=== PATIENT | female | born 1960 | race Caucasian/White ===

== ENCOUNTER → 2020-12-25 16:42 | Outpatient (CLI) | payer BC, SELFPAY ==
--- NOTE | ~2020-12-25 | MM_ITS ---
EXAMINATION: MM screening allen BI w mark HISTORY: Screening mammogram TECHNIQUE: Craniocaudal and mediolateral oblique 3-D tomosynthesis images were obtained and synthetic 2-D images were generated. CAD analysis was submitted and interpreted. COMPARISON: No prior mammogram is available for comparison at this institution. BREAST PARENCHYMAL COMPOSITION: The breasts are heterogeneously dense, which may obscure small masses . FINDINGS: RIGHT BREAST: There is no evidence of suspicious mass, calcification, or architectural distortion to suggest malignancy. LEFT BREAST: There is focal asymmetry in the subareolar aspect of the breast. In addition, there is a n asymmetry in the posterior third of the breast in line with the nipple axis on the craniocaudal vie w. IMPRESSION: 1. Left breast findings as described above which may represent the patient's baseline however no comp arison is currently available. 2. Comparison with prior mammograms is necessary. BI-RADS Category 0: Incomplete: Needs comparison with prior mammograms. Reviewed, dictated and finalized at location A. IMPRESSION: 1. Left breast findings as described above which may represent the patient's ba seline however no comparison is currently available. 2. Comparison with prior mammograms is necessary. BI-RADS Category 0: Incomplete: Needs comparison with prior mammograms.
== END ==
PROVIDERS: PCP Internal Medicine; Visit Provider Obstetrics & Gynecology
DX: Z12.31 Encounter for screening mammogram for malignant neoplasm of breast (principal); R92.8 Other abnormal and inconclusive findings on diagnostic imaging of breast
CPT/HCPCS: 77063; 77067

== ENCOUNTER → 2021-11-25 15:08 | Outpatient (CLI) | payer BC, SELFPAY ==
--- NOTE | ~2021-11-25 | US_ITS ---
EXAMINATION: US thyroid DATE: 11/25/2021 15:38 INDICATION: Thyroid nodule. TECHNIQUE: Multiple ultrasound images of the thyroid were obtained. COMPARISON: None. FINDINGS: The right thyroid lobe measures 4.2 x 1.4 x 1.6 cm. The left thyroid lobe measures 4.0 x 2.2 x 1.8 c m. In the left thyroid lobe, there is a 2.4 cm predominantly solid, hypoechoic, wider than tall nodu le with lobulated margin without echogenic foci (TI-RADS TR4). In the right thyroid lobe, there is a 10 mm solid, isoechoic, wider than tall nodule with smooth margin without echogenic foci (TR3). In th e right thyroid lobe, there is a 9 mm solid, isoechoic, wider than tall nodule with smooth margin wit hout echogenic foci (TR3). IMPRESSION: 1. Multinodular goiter. Ultrasound-guided fine-needle aspiration of the 2.4 cm left thyroid nodule is recommended. Reviewed, dictated and finalized at location E.
== END ==
PROVIDERS: PCP Obstetrics & Gynecology; Visit Provider Obstetrics & Gynecology
DX: E04.2 Nontoxic multinodular goiter (principal)
CPT/HCPCS: 76536

== ENCOUNTER 2021-12-18 12:50 | Outpatient (CLI) | payer BC, SELFPAY ==
--- NOTE | ~2021-12-18 | US_ITS ---
EXAMINATION: US FNA w image guidance DATE: 12/18/2021 13:44 INDICATION: Goiter with 2.4 cm left thyroid nodule. TECHNIQUE: A time-out was performed to verify the patient's name, date of , and procedure to be performed . The procedure and its benefits and risks were discussed with the patient. Risks specifically discus sed included bleeding and infection. The patient understood the risks and agreed to proceed. The neck was prepped and draped in the usual sterile manner. 3 mL 1% lidocaine was used for local anesthesia . 6 passes were made with a 25G needle into the lesion. Appropriate needle location was documented with continuous sonographic guidance. A sterile bandage was applied. There were no immediate compli cations. FINDINGS: Grayscale ultrasound images demonstrate biopsy needles advanced into the heterogeneous predominantly solid isoechoic left thyroid nodule of concern. IMPRESSION: 1. Successful ultrasound-guided fine needle aspiration of the largest TI RADS 3 left thyroid nodule. Reviewed, dictated and finalized at location A.
== END 2021-12-18 12:51 | disposition home or self-care (01) ==
PROVIDERS: Visit Provider Otolaryngology
DX: E04.2 Nontoxic multinodular goiter (principal)
CPT/HCPCS: 10005; 88173; 88305

== ENCOUNTER → 2022-02-10 13:12 | Outpatient (CLI) | payer BC, SELFPAY ==
--- NOTE | ~2022-02-10 | DEXA_ITS ---
Bone Density Report Name: MARIETTA GILL Age: 61 Sex: Female Ethnicity: White Date of : 1960 Indication: postmenopausal; screening for osteoporosis; height loss; hysterectomy; Referring Provider: RYAN BEAUCHAMP Study: Bone densitometry was performed. Exam Date: February 10, 2022 Accession number: [id number] Bone Density: Region BMD T-score Z-score Classification AP Spine (L1-L4) 0.982 -0.6 0.9 Normal Femoral Neck (Left) 0.671 -1.6 -0.3 Osteopenia Total Hip (Left) 0.848 -0.8 0.2 Normal Femoral Neck (Right) 0.693 -1.4 -0.1 Osteopenia Total Hip (Right) 0.871 -0.6 0.4 Normal Total Hip Mean 0.860 -0.7 0.3 Normal World Health Organization criteria for BMD impression classify patients as: Normal (T-score at or above -1.0), Osteopenia (T-score between -1.0 and -2.5), or Osteoporosis (T-score at or below -2.5). 10-year Fracture Risk: FRAX not reported because: Treated for osteoporosis Clinical Information Provided by Patient: Is being treated for osteoporosis Has used the following medications: Evista (i.e. raloxifene), Vitamin D, Calcium, MTV Has the following medical conditions: Hysterectomy Patient maximum height was 69 Menopause Age: 35 Drinks caffeinated beverages Onset of menses at age 14 Number of children 2 Impression: The patient has low bone mass, based on the Left Femoral Neck T-score. Discussion: It is important to ask patients whether they are taking their medications and to encourage continued and appropriate compliance with their osteoporosis therapies to reduce fracture risk. It is also important to review their risk factors and encourage appropriate calcium and vitamin D intakes, exercise, fall prevention and other lifestyle measures. Follow-Up: Consider a repeat BMD and Vertebral Fracture Assessment (VFA) exam in 2 years or sooner if medically necessary, to reassess this patient's status. Reported by: MIKI on 02/10/2022 2:25:00 PM. Reviewed, dictated and finalized at location AGiovanna GRUBBS
--- NOTE | ~2022-02-10 | MM_ITS ---
EXAMINATION: MM screening allen BI w mark HISTORY: Screening TECHNIQUE: Craniocaudal and mediolateral oblique 3-D tomosynthesis images were obtained and synthetic 2-D images were generated. CAD analysis was submitted and interpreted. COMPARISON: Comparison to multiple prior studies sequentially, with oldest reviewed study dated 06/2018. BREAST PARENCHYMAL COMPOSITION: Breast composed of scattered areas of fibroglandular density FINDINGS: There is focal asymmetry in the subareolar location of the left breast, best seen on MLO vi ew. The right breast is stable without evidence for malignancy. IMPRESSION: 1. New left breast asymmetry, subareolar location. 2. Additional mammographic views and possible breast ultrasound are recommended. BI-RADS Category 0: Incomplete: Needs additional imaging evaluation. Reviewed, dictated and finalized at location A. IMPRESSION: 1. New left breast asymmetry, subareolar location. 2. Additional mammographic views and possible breast ultrasound are recommended . BI-RADS Category 0: Incomplete: Needs additional imaging evaluation.
== END ==
PROVIDERS: PCP Obstetrics & Gynecology; Visit Provider Obstetrics & Gynecology
DX: Z12.31 Encounter for screening mammogram for malignant neoplasm of breast (principal); Z78.0 Asymptomatic menopausal state; M85.89 Other specified disorders of bone density and structure, multiple sites; R92.8 Other abnormal and inconclusive findings on diagnostic imaging of breast
CPT/HCPCS: 77063; 77067; 77080

== ENCOUNTER → 2022-02-27 07:38 | Outpatient (CLI) | payer BC, SELFPAY ==
--- NOTE | ~2022-02-27 | MMUS_ITS ---
EXAMINATION: MM diagnostic allen LT w mark, US breast LT complete HISTORY: New left subareolar mammographic asymmetry reported on 02/10/2022 screening mammogram examina tion TECHNIQUE: Additional 3-D tomosynthesis images of the left breast were performed and synthetic 2-D im ages were generated. CAD analysis was submitted and interpreted. High resolution complete left breast ultrasound including all 4 quadrants and subareolar area was performed. COMPARISON 02/10/2022: 12/25/2020, 12/10/2019, 08/20/2018 bilateral screening mammogram examinations] FINDINGS: MAMMOGRAPHIC FINDINGS: Stable approximately 1 cm rounded opacity overlies the subareolar area on MLO view that appears stabl e since prior examinations including 08/20/2018. This appears to be composite shadowing of overlapping fibroglandular stroma. ULTRASOUND: No suspicious mass or shadowing of the left breast is detected. There are several mildly hyperechoic circumscribed parallel lesions which are likely lipomas includin g the followin:00 5 cm from nipple: 7.4 x 10.4 x 10 mm lipoma 7:00 4 cm from nipple: Parallel circumscribed approximately 8 x 24 x 22 mm lipoma 9:00 4 cm from nipple: 6.4 x 9.6 x 11 mm lipoma IMPRESSION: 1. No mammographic evidence of malignancy 2. Routine annual mammographic screening is recommended BI-RADS Category 2: Benign finding(s). Reviewed, dictated and finalized at location A. IMPRESSION: 1. No mammographic evidence of malignancy 2. Routine annual mammographic screening is recommended BI-RADS Category 2: Benign finding(s).
== END ==
PROVIDERS: Visit Provider Obstetrics & Gynecology
DX: R92.8 Other abnormal and inconclusive findings on diagnostic imaging of breast (principal); D17.1 Benign lipomatous neoplasm of skin and subcutaneous tissue of trunk
CPT/HCPCS: 76641; 77061; 77065; G0279

== ENCOUNTER → 2023-02-12 14:42 | Outpatient (CLI) | payer BC, SELFPAY ==
--- NOTE | ~2023-02-12 | MM_ITS ---
EXAMINATION: MM screening allen BI w mark HISTORY: Screening mammogram TECHNIQUE: Craniocaudal and mediolateral oblique 3-D tomosynthesis images were obtained and synthetic 2-D images were generated. CAD analysis was submitted and interpreted. COMPARISON: 02/27/2022 diagnostic left mammogram and complete left breast ultrasound examination 02/10/2022, 12/25/2020 bilateral screening mammogram examinations BREAST PARENCHYMAL COMPOSITION: There are scattered areas of fibroglandular density. FINDINGS: There is no evidence of suspicious mass, calcification, or architectural distortion to sugg est malignancy in either breast. There has been no suspicious interval change. IMPRESSION: 1. No mammographic evidence of malignancy. 2. Recommend routine screening mammography in one year. BI-RADS Category 1: Negative Reviewed, dictated and finalized at location A.
== END ==
PROVIDERS: PCP Family Medicine; Visit Provider Obstetrics & Gynecology
DX: Z12.31 Encounter for screening mammogram for malignant neoplasm of breast (principal)
CPT/HCPCS: 77063; 77067

== ENCOUNTER 2024-04-13 14:15 | Outpatient (CLI) | payer BC, SELFPAY ==
--- NOTE | ~2024-04-13 | MM_ITS ---
EXAMINATION: MM screening allen BI w mark HISTORY: Screening TECHNIQUE: Craniocaudal and mediolateral oblique 3-D tomosynthesis images were obtained and synthetic 2-D images were generated. CAD analysis was submitted and interpreted. COMPARISON: Comparison to multiple prior studies sequentially, with oldest reviewed study dated 06/2018. BREAST PARENCHYMAL COMPOSITION: Not dense: There are scattered areas of fibroglandular density. FINDINGS: There is no evidence of suspicious mass, calcification, or architectural distortion to sugg est malignancy in either breast. There has been no suspicious interval change. IMPRESSION: 1. No mammographic evidence of malignancy. 2. Recommend routine screening mammography in one year. BI-RADS Category 1: Negative Reviewed, dictated and finalized at location B.
== END 2024-04-13 14:16 | disposition home or self-care (01) ==
LOC: MICIMG 14:16
PROVIDERS: PCP Family Medicine; Visit Provider Obstetrics & Gynecology
DX: Z12.31 Encounter for screening mammogram for malignant neoplasm of breast (principal)
CPT/HCPCS: 77063; 77067

== ENCOUNTER 2024-08-01 15:15 | Outpatient (CLI) | payer BC, SELFPAY ==
--- NOTE | ~2024-08-01 | US_ITS ---
EXAMINATION: US thyroid DATE: 08/01/2024 15:31 INDICATION: Follow-up thyroid nodule TECHNIQUE: Multiple ultrasound images of the thyroid were obtained. COMPARISON: 11/25/2021. Reference was also made to a FNA of a nodule within the left lobe of the thyroi d gland, performed 12/18/2021, yielding benign results. FINDINGS: The right thyroid lobe measures 4.6 x 2.1 x 1.3 cm. Within the lower pole of the right lobe of the thyroid gland is a 6.9 x 7.5 x 7.6 mm nodule: Composition -solid or almost completely solid (2) Echogenicity -isoechoic (1) Shape - wider than tall Margin - smooth Echogenic foci - none. = TR3 Mildly suspicious Greater than or equal to 1.5 cm: Follow-up Greater than or equal to 2.5 cm: FNA The left thyroid lobe measures 4.6 x 2.3 x 1.9 cm. Within the lower pole of the left lobe of the thyroid gland is a 22 x 22 x 12 mm nodule: Composition -spongiform Echogenicity -isoechoic and hyperechoic (1) Shape - wider than tall Margin - smooth Echogenic foci - none. = TR1 benign No FNA No follow-up This nodule corresponds to the abnormality biopsied in 2021, yielding benign results. The isthmus measures 3.3 mm in anterior to posterior dimension. There is normal echotexture and echogenicity throughout the remainder of the thyroid gland. No additi onal discrete nodules identified. Normal vascular flow is present. IMPRESSION: TR3 nodule in the right lobe of the thyroid gland measuring 7.6 mm in greatest dimension. This nodule measures below the threshold for both FNA and follow-up. TR1 nodule within the left lobe of thyroid gland, previously biopsied and largely unchanged from prio r for which no follow-up is recommended. Reviewed, dictated and finalized at location A. 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 This nodule measures below the threshold for both FNA and follow-up. TR1 nodule within the left lobe of thyroid gland, previously biopsied and large ly unchanged from prior for which no follow-up is recommended.
== END 2024-08-01 15:16 | disposition home or self-care (01) ==
LOC: MICIMG 15:15
PROVIDERS: PCP Family Medicine; Visit Provider Otolaryngology Otolaryngology/Facial Plastic Surgery
DX: E04.2 Nontoxic multinodular goiter (principal)
CPT/HCPCS: 76536

== ENCOUNTER 2024-12-21 14:37 | Outpatient (CLI) | payer BC, SELFPAY ==
--- NOTE | ~2024-12-21 | DEXA_ITS ---
Bone Density Report Name: MARIETTA GILL Age: 63 Sex: Female Ethnicity: White Date of : 1960 Indication: postmenopausal; screening for osteoporosis; height loss; hysterectomy; Referring Provider: DENISE CERVANTES Study: Bone densitometry was performed. Exam Date: December 21, 2024 Accession number: [id number] Bone Density: Region BMD T-score Z-score Classification AP Spine(L1-L4) 0.935 -1.0 0.7 Normal Femoral Neck (Left) 0.693 -1.4 0.1 Osteopenia Total Hip (Left) 0.877 -0.5 0.6 Normal Femoral Neck (Right) 0.695 -1.4 0.1 Osteopenia Total Hip (Right) 0.936 0.0 1.1 Normal Total Hip Mean 0.906 -0.3 0.9 Normal World Health Organization criteria for BMD impression classify patients as: Normal (T-score at or above -1.0), Osteopenia (T-score between -1.0 and -2.5), or Osteoporosis (T-score at or below -2.5). 10-year Fracture Risk(1): Major Osteoporotic Fracture 8.4% Hip Fracture 0.8% Reported Risk Factors: [place] (), Neck BMD=0.693, BMI=27.7 (1) FRAX(R) Version 3.08. Fracture probability calculated for an untreated patient. Fracture probability may be lower if the patient has received treatment. Clinical Information Provided by Patient: Has used the following medications: Evista (i.e. raloxifene), Vitamin D, Calcium Has the following medical conditions: Hysterectomy Patient maximum height was 69.5 Menopause Age: 35 Drinks caffeinated beverages Onset of menses at age 13 Number of children 2 Impression: The patient has low bone mass, based on the Left Femoral Neck T-score. The patient has an estimated ten-year risk of hip fracture of 0.8% and an estimated ten-year risk of major fracture of 8.4%, based on the WHO FRAX algorithm. Discussion: BONE DENSITY IS LOW AT ONE OR MORE SKELETAL SITES. This patient's lowest T-score is low at one or more skeletal sites. It meets the World Health Organization's (WHO) criteria for ?low bone mass? (T-score between -1.0 and -2.5). The patient's 10-year risk of fracture as calculated by FRAX is less than the threshold where pharmacological therapy is recommended by the National Osteoporosis Foundation (NOF). However, all treatment decisions require clinical judgment and consideration of individual patient factors, including patient preferences, comorbidities, previous drug use, risk factors not captured in the FRAX model (e.g., frailty, falls, vitamin D deficiency, increased bone turnover, interval significant decline in bone density) and possible under or overestimation of fracture risk by FRAX. The patient should follow a healthful lifestyle (good nutrition with adequate calcium and vitamin D, and appropriate weight-bearing exercise). Follow-Up: Consider repeating this study in 2 to 3 years to reassess this patient's status, or sooner if there is some new clinical indication. Reported by: DAWN on 12/21/2024 3:15:00 PM. Reviewed, dictated and finalized at location A.
--- OUTSIDE RECORDS SUMMARY | 2024-12-21 14:40 | XMS_ITS | Encounter Summary ---
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 Name Role Phone Justice Chairez MD Primary Care Provider [phone] Laly Houston MD Primary Care Provide r Encounter Details Date Type Department Care Team (Late st Contact Info) Description 12/13/2019 Telephone [facility] [address] [place] [address] Doris Cole, RT Social History Tobacco Use Types Packs/Day Years Used Date Smoking Tobacco: Never Smokeless Tobacco: Never Alcohol Use Standard Drinks/Week Comments Yes 0 (1 standard drink = 0.6 oz pur e alcohol) PHQ-2 Answer Date Recorded PHQ-2 Score 0 02/10/2019 Comments No Sex and Gender Information Value Date Recorded Sex Assigned at Not on file 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
--- OUTSIDE RECORDS SUMMARY | 2024-12-21 14:40 | XMS_ITS | Referral Summary ---
Author Organization [facility] Address [address] [place] [address] Care Team Providers Care Safety Lead Name Role Phone Unavailable Primary Care Provider Unavailabl e Allergies No known active allergies Medications spironolactone (ALDACTONE) 50 mg tablet take 1 tablet (50MG) by oral route every other day 0 0 Active raloxifene (EVISTA) 60 mg tablet take 1 tablet (60MG) by oral route every day 0 0 Active triamcinolone (KENALOG) 0.1 % cream PLEASE SEE ATTACHED FOR DETAILED DIRECTIONS 1 Active Active Problems Problem Noted Date Diagnosed Date Encounter for wellness examination 04/03/2022 Assessment & Plan (04/03/2022 9:49 PM CDT): Ordered CBC, cmp, lipid, hgb a1c, HIV, hep c Colonoscopy:up to date Pap smear:follows with ob Mammo:follows with ob F/u in 1 year for annual Personal history of colonic polyps 05/03/2021 Overview (05/03/2021): Added automatically from request for surgery [id number] Encounter for screening colonoscopy 05/03/2021 Overview (05/03/2021): Added automatically from request for surgery [id number] Vitamin D deficiency 04/17/2021 Vitamin D deficiency 04/17/2021 Mixed hyperlipidemia 12/10/2018 Assessment & Plan (04/03/2022 9:46 PM CDT): Stable / clinically quiescent. Will continue to monitor. Osteopenia of multiple sites 12/10/2018 Assessment & Plan (04/03/2022 9:46 PM CDT): Stable Continue with calcium and vitamin d Resolved Problems Problem Noted Date Diagnosed Date Resolved Date Encounter for wellness examination in adult 12/10/2018 12/10/2018 Immunizations Immunization Administration Dates Next Due Flucelvax Influenza Quad 03/26/2019,03/20/2018,1 Influenza, Quadrivalent, Karyn l Culture-based MDCK, Preservative Free, Antibiotic Free, Intramuscular 03/26/2019,03/20/2018,03/25/2017 Influenza, Quadrivalent, Spl it, Preservative Free, Intradermal 03/26/2016 Influenza, Quadrivalent, Spl it, Preservative Free, Intramuscular 04/02/2021,03/27/2020,03/26/2016,03/22 Influenza, Split 03/22/2010 Influenza, Trivalent, IM (MDV) 4,03/22/2013,04/10/2012,04/22 Influenza, Unspecified 03/27/2022,2018,03/25/2017,03/06 Td, adsorbed 04/02/2021 Tdap 06/05/2010 ZOSTER LIVE 04/10/2012 ZOSTER Recombinant 07/09/2019,03/26/2019 Social History Tobacco Use Types Packs/Day Years Used Date Smoking Tobacco: Never Smokeless Tobacco: Never Tobacco Cessation:Counseling Given: Not Answered Alcohol Use Standard Drinks/Week Comments Yes 0 (1 standard drink = 0.6 oz pur e alcohol) AUDIT-C Answer Date Recorded Q1: How often do you have a drink containing alc ohol? Monthly or less 09/02/2021 Average Number of Drinks Not on file 022 Q3: How often do you have si x or more drinks on one occasion? 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 Gender Identity Not on file Sexual Orientation Not on file Last Filed Vital Signs Vital Sign Reading Time Taken Comments Blood Pressure 126/80 04/03/2022 3:53 PM CDT Pulse 75 04/03/2022 3:53 PM CDT Temperature 36.8 C (98.2 F) 09/02/2021 9:08 AM CDT Respiratory Rate 16 04/03/2022 3:53 PM CDT Oxygen Saturation 97% 04/03/2022 3:53 PM CDT Inhaled Oxygen Concentration - - Weight 82.6 kg (182 lb) 04/03/2022 3:53 PM CDT Height 175.3 cm (5' 9) 04/03/2022 3:53 PM CDT Body Mass Index 26.88 04/03/2022 3:53 PM CDT Plan of Treatment Not on file Procedures Procedure Name Priority Date/Time Associated Diagnosis Comments HEPATITIS C ANTIBODY Routine 04/10/2022 6:57 AM CDT Mixed hyperlipidemia Healthcare maintenance Need for hepatitis C screening test DEXA AXIAL SKELETON BONE DENSITY 1 OR MORE SITES Schedule Routine, Read Routine (OP Routine) 02/10/2022 SCREENING MAMMOGRAM BILATERAL W ISAC Schedule Routine, Read Routine (OP Routine) 02/10/2022 COLONOSCOPY 09/02/2021 7:28 AM CDT from Last 3 Months or Most Recently Relevant to Health Maintenance Results * Hepatitis C antibody (04/10/2022 6:57 AM CDT) Hep C Ab NON-REACTI VE NON-REACT IRMA [facility] SIGNAL TO CUT-OFF 0.02 <1.00 [facility] Comment: HCV antibody was non-reactive. There is no laboratory evidence of HCV infection. In most cases, no further action is required. However, if recent HCV exposure is suspected, a test for HCV RNA (test code 79850) is suggested. For additional information please refer to http://education.[employer]/faq/XTI15l1 (This link is being provided for informational/ educational purposes only.) Blood 04/10/2022 6:57 AM CDT 04/10/2022 6:58 AM CDT Narrative [facility] - 04/11/2022 3:22 PM CDT FASTING:YES FASTING: YES Laly Houston MD LAB MICROBIOLOGY - NERAL ORDERABLES Final Result [facility] [address] [address] * Screening Mammogram Bilateral W Isac (02/10/2022) Anatomical Region Laterality Modality Breast Bilateral Mammography us Historical Provider IMG MAMMO PROCEDURES Coby l Result * Dexa Axial Skeleton Bone Density 1 or 2 Site (02/10/2022) Anatomical Region Laterality Modality Body N/A Radiographic Peggy ging us Generic External Data Provider IMG DXA PROCEDURE S Final Result * COLONOSCOPY (09/02/2021 7:28 AM CDT) Anatomical Region Laterality Modality Other Narrative Procedure Note Luke Cotton MD - 09/02/2021 7:28 AM CDT [facility] Patient Name: Elizabeth Courtney Procedure Date: 09/02/2021 7:28 AM Date of : 1960 Admit Type: Outpatient Age: 60 Gender: Female Attending MD: Luke Cotton M.D. Room: [facility] ENDOSCOPY ROOM 1 Note Status: Finalized Patient Profile: This is a 60 year old female. No family history of colon cancer. Personal history of colon polyps. Procedure: Colonoscopy Indications: High risk colon cancer surveillance: Personalhistory of colonic polyps, Last colonoscopy: April2016 Referring MD: Justice Chairez M.D. Providers: Luke Cotton M.D. Impression: - One 6 mm polyp in the cecum, removed with a jumbo cold forceps. Resected and retrieved. - Diverticulosis in the distal sigmoid colon with sharp angulation. - Internal hemorrhoids. Recommendation: - Await pathology results. - Repeat colonoscopy in 5 years for screeningpurposes. Medicines: Monitored Anesthesia Care Complications: No immediate complications. Estimated Blood Loss: Estimated blood loss: none. Procedure: Pre-Anesthesia Assessment: - Prior to the procedure, a History and Physicalwas performed, and patient medications and allergieswere reviewed. The patient's tolerance of previous anesthesia was also reviewed. The risks andbenefits of the procedure and the sedation options and risks were discussed with the patient. All questions were answered, and informed consent was obtained. Prior Anticoagulants: The patient has taken noanticoagulant or antiplatelet agents. ASA Grade Assessment: II -A patient with mild systemic disease. After reviewing the risks and benefits, the patient was deemed in satisfactory condition to undergo the procedure. The benefits, risks and alternatives of theprocedure and sedation were discussed and informed consentwas obtained. All questions were answered. Please referto the signed informed consent document in the medical record. The bowel preparation used was Miralax and bisacodyl tablets via split dose instruction. The scope was passed under direct vision. The Pediatric Colonoscope [id number]-H190L [id number] was introducedthrough the anus and advanced to the the cecum, identifiedby appendiceal orifice and ileocecal valve. Thequality of the bowel preparation was excellent. Bowel prepwas administered using a split dose. Findings: The perianal and digital rectal examinations were normal. The appendiceal orifice appeared normal. A 6 mm polyp was found in the cecum. The polyp was semi-sessile. The polyp was removed with a jumbo cold forceps. Resection and retrieval were complete. The descending colon, transverse colon and ascending colon appeared normal. Many small-mouthed diverticula were found in the distal sigmoid colon with sharp fixed angulation at the rectal sigmoid angle area. Internal hemorrhoids were found during retroflexion. The hemorrhoids were medium-sized. Electronically signed by Luke Cotton M.D. Luke Cotton M.D. 09/02/2021 8:50:12 AM Number of Addenda: 0 Note Initiated On: 09/02/2021 7:28 AM Procedure Code(s): --- Professional --- 26481, Colonoscopy, flexible; with biopsy, single or multiple Diagnosis Code(s): --- Professional --- Z86.010, Personal history of colonic polyps K64.8, Other hemorrhoids D12.0, Benign neoplasm of cecum K57.30, Diverticulosis of large intestine without perforation orabscess without bleeding CPT copyright 2020 [employer]. All rights reserved. The codes documented in this report are preliminary and upon ladle liner reviewmay be revised to meet current compliance requirements. 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
--- OUTSIDE RECORDS SUMMARY | 2024-12-21 14:40 | XMS_ITS | Clinical Summary ---
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 Name Role Phone Unavailable Primary Care Provider [...] (05/03/2021): Added automatically from request for surgery [id number] Encounter for screening colonoscopy 05/03/2021 Overview (05/03/2021): Added automatically from request for surgery [id number] Vitamin D deficiency 04/17/2021 Vitamin D deficiency [...] 06/05/2010 ZOSTER LIVE 04/10/2012 ZOSTER Recombinant 07/09/2019,03/26/2019 Surgical History Surgery Date Site/Laterality Comments TONSILLECTOMY Tonsillectomy TOTAL ABDOMINAL HYSTERECTOMY W/ BILATERAL SALPINGOOPHORECTOMY Hysterectomy, total abdominal, BSO SECTION section x2 CARPAL TUNNEL RELEASE 06/22/1990 - 06/21/1991 Right Carpal tunnel release COLONOSCOPY 04/22/2016 - 05/21/2016 Medical History Medical History Date Comments Hyperlipidemia Hyperlipidemia Hx Other Medical 1992 cyst removal Family History Medical History Relation Name Comments Diabetes Brother 2 Diabetes mellit us; Other Brother 3 Alive and well; Other Father Alive and well; Other Mother Alive and well; Relation Name Status Comments Brother 1 Alive Brother 2 Brother 3 Father Alive Mother Alive Social History Tobacco Use Types Packs/Day Years [...] on file Legal Sex Female 1:04 AM [employer]ITTING M[employer] Gender Identity Not on file Sexual Orientation Not on file Obstetrics History Para Term AB IAB SAB Ectopic Multiple Livin g Live Births 2 2 2 Date Outcome GA Total Labor Labor/2nd/3rd Weight Sex Type Anes PTL Trina A1 A5 Name Clin Term Term Last Filed Vital Signs Vital Sign Reading [...] 04/03/2022 3:53 PM CDT Plan of Treatment Health Maintenance Due Date Last Done Comments Hepatitis B Screening 1978 Breast Cancer Screening-Mammogram 02/10/2023 02/10/2022, 12/25/2020, 12/14/2019, Additional history exists Depression Screening 04/03/2023 04/03/2022, 04/02/2021, 03/27/2020, Additional history exists Regular Well Visit/Exam 18-64 04/03/2023 04/03/2022, 04/02/2021, 03/27/2020, Additional history exists Osteoporosis Screening-Bone Density Scan 02/11/2024 02/10/2022, 12/14/2019, 09/25/2017, Additional history exists Covid-19 Vaccine (3 - 2023- season) 2024 10/12/2020, 09/21/2020 Influenza Vaccine (Season Ended) 2025 03/27/2022, 04/02/2021, 03/27/2020, Additional history exists Colon Cancer Screening-Colonoscopy 09/02/2026 09/02/2021, 04/28/2016, 04/28/2016, Additional history exists DTaP/Tdap/Td Vaccine (3 - Td or Tdap) 04/02/2031 04/02/2021, 06/05/2010 Zoster Vaccine Completed 07/09/2019, 1010/2018, 04/10/2012 Colon Cancer Screening-CT Colonography Discontinued 09/02/2021, 04/28/2016, 04/28/2016, Additional history exists Colon Cancer Screening-DNA Stool Discontinued 09/02/2021, 04/28/2016, 04/28/2016, Additional history exists Colon Cancer Screening-FIT Discontinued 09/02, 04/28/2016, 04/28/2016, Additional history exists Colon Cancer Screening-Sigmoidoscopy Discontinued 09/02/2021, 04/28/2016, 04/28/2016, Additional history exists Hepatitis C Screening Completed 04/10/2022 Pneumococcal vaccine <65 Aged Out No longer eligible based on patient's age to complete this topic Procedures Procedure Name Priority Date/Time Associated Diagnosis [...] a test for HCV RNA (test code 27286) is suggested. For additional information please refer to http://education.[employer]/faq/KGT67m6 (This link is being provided for informational/ educational purposes only.) Blood 04/10/2022 6:57 AM CDT 04/10/2022 6:58 AM CDT Narrative [facility] - 04/11/2022 3:22 PM CDT FASTING:YES FASTING: YES Laly Houston MD LAB MICROBIOLOGY - [facility] ORDERABLES Final Result [facility] [id number] [place] [address] * Screening Mammogram Bilateral [place] (02/10/2022) Anatomical Region Laterality Modality Breast Bilateral Mammography Historical Provider MD [facility] PROCED[facility] Coby l Result * Dexa Axial Skeleton Bone Density 1 or 2 Site (02/10/2022) Anatomical Region Laterality Modality Body N/A Radiographic Peggy ging Generic External Data Provider IMG DXA PROCEDURE S Final Result * COLONOSCOPY (09/02/2021 7:28 AM CDT) Anatomical Region Laterality Modality Other Narrative Procedure Note Luke Cotton MD - 09/02/2021 7:28 AM CDT [facility] Patient Name: Elizabeth Courtney Procedure Date: 09/02/2021 7:28 AM Date of : 1960 Admit Type: Outpatient Age: 60 Gender: Female Attending MD: Luke Cotton M.D. Room: [facility] ENDOSCOPY ROOM 1 Note Status: Finalized Patient [...] under direct vision. The Pediatric Colonoscope PCF-H190L [id number] was introducedthrough the anus and advanced to [...] 7:28 AM Procedure Code(s): --- Professional --- 93244, Colonoscopy, flexible; with biopsy, single or multiple Diagnosis Code(s): --- Professional --- Z86.010, Personal history of colonic polyps K64.8, Other hemorrhoids D12.0, Benign neoplasm of cecum K57.30, Diverticulosis of large intestine without perforation orabscess without bleeding CPT copyright 2020 [employer]. All rights reserved. The codes documented in this report are preliminary and upon sieve maker reviewmay be revised to meet current compliance requirements. Recognized by the [employer] for promoting quality in endoscopy Luke Cotton MD ENDOSCOPY PROCEDURES Final Result from Last 3 Months or Most Recently Relevant to Health Maintenance Insurance BLUE ACC CHOICE OOS Advance Directives For more information, please contact: [phone] Documents on File Type Date Recorded Patient Continuous Conveyor Screen Drier Expl anation ADVANCE DIRECTIVE 02/10/2017 Power of A ttorney * Full Code (Latest Code Status on File) Date Activated Date Inactivated Comments 09/02/2021 7:25 AM 09/02/2021 1:44 PM * Full Code Date Activated Date Inactivated Comments 09/02/2021 7:25 AM 09/02/2021 7:25 AM
== END 2024-12-21 14:38 | disposition home or self-care (01) ==
LOC: ANHIMG 14:39
PROVIDERS: PCP Family Medicine; Visit Provider Family Medicine
DX: Z78.0 Asymptomatic menopausal state (principal); M85.852 Other specified disorders of bone density and structure, left thigh; M85.851 Other specified disorders of bone density and structure, right thigh
CPT/HCPCS: 77080

== ENCOUNTER 2025-04-17 14:56 | Outpatient (CLI) | payer BC, SELFPAY ==
--- NOTE | ~2025-04-17 | MM_ITS ---
EXAMINATION: MM screening [facility] BI w mark HISTORY: Screening TECHNIQUE: Craniocaudal and mediolateral oblique 3-D tomosynthesis images were obtained and synthetic 2-D images were generated. CAD analysis was submitted and interpreted. COMPARISON: Comparison to multiple prior studies sequentially, with oldest reviewed study dated 12/14/2019. BREAST PARENCHYMAL COMPOSITION: Not dense: There are scattered areas of fibroglandular density. FINDINGS: There is no evidence of suspicious mass, calcification, or architectural distortion to suggest malignancy in either breast. There has been no suspicious interval change. IMPRESSION: 1. No mammographic evidence of malignancy. 2. Recommend routine screening mammography in one year. BI-RADS Category 1: Negative Reviewed, dictated and finalized at location B.
== END 2025-04-17 14:57 | disposition home or self-care (01) ==
PROVIDERS: PCP Family Medicine; Visit Provider Obstetrics & Gynecology
DX: Z12.31 Encounter for screening mammogram for malignant neoplasm of breast (principal)
CPT/HCPCS: 77063; 77067